=== PATIENT | male | born 1965 | race Caucasian/White ===

== ENCOUNTER 2023-05-25 04:20 | Day surgery (SDC) | payer BC ==
[2023-05-23 15:23] VITALS: BMI 35.2
[2023-05-25 12:06] VITALS: TEMP 97.8
[2023-05-25 12:10] VITALS: BP 106/67; PULSE 61; RESP 14
== END 2023-05-25 10:00 | disposition home or self-care (01) ==
LOC: JASU-ENDO 04:20
PROVIDERS: ATTEND Internal Medicine Gastroenterology
PROC: 0DBN8ZX Excision of Sigmoid Colon, Via Natural or Artificial Opening Endoscopic, Diagnostic (ICD-10-PCS; 2023-05-25)
PROC: 0DBM8ZX Excision of Descending Colon, Via Natural or Artificial Opening Endoscopic, Diagnostic (ICD-10-PCS; principal; 2023-05-25 08:45)
DX: Z12.11 Encounter for screening for malignant neoplasm of colon (principal); K63.5 Polyp of colon; K64.8 Other hemorrhoids; Z86.010 Personal history of colon polyps
CPT/HCPCS: 82962; 88305-TC

== ENCOUNTER 2023-05-30 07:00 | Day surgery (SDC) | payer BC ==
[2023-05-25 13:49] VITALS: BMI 37.4
[2023-05-30 07:46] VITALS: RESP 18
[2023-05-30 09:06] VITALS: BP 129/63; PULSE 69; TEMP 97.3
== END 2023-05-30 09:05 | disposition home or self-care (01) ==
LOC: JASU-ENDO 07:00
PROVIDERS: ATTEND Internal Medicine Gastroenterology
PROC: 0DB78ZX Excision of Stomach, Pylorus, Via Natural or Artificial Opening Endoscopic, Diagnostic (ICD-10-PCS; 2023-05-30)
PROC: 0DB68ZX Excision of Stomach, Via Natural or Artificial Opening Endoscopic, Diagnostic (ICD-10-PCS; 2023-05-30)
PROC: 0DB48ZX Excision of Esophagogastric Junction, Via Natural or Artificial Opening Endoscopic, Diagnostic (ICD-10-PCS; principal; 2023-05-30 08:00)
DX: K21.9 Gastro-esophageal reflux disease without esophagitis (principal); K29.50 Unspecified chronic gastritis without bleeding
CPT/HCPCS: 82962; 88305-TC; 88312-TC; 88341-TC; 88342-TC